=== PATIENT | female | born 1990 | race Caucasian/White ===

== ENCOUNTER 2021-02-20 18:13 | Emergency (ER) | payer OTHER ==
[~2021-02-20] VITALS: Ht 162.6 cm; Wt 68.0 kg
[2021-02-20 18:53] LABS: ABSOLUTE BASOPHILS 0.1 thou/uL (0.0-0.2); ABSOLUTE EOSINOPHILS 0.1 thou/uL (0.0-0.7); ABSOLUTE LYMPHOCYTES 2.4 thou/uL (0.8-5.3); ABSOLUTE MONOCYTES 0.5 thou/uL (0.0-1.2); ABSOLUTE NEUTROPHILS 8.2 thou/uL (1.6-8.1); BASOPHILS 1.2 %; EOSINOPHILS 0.5 %; HEMATOCRIT 42.9 % (37.0-47.0); HEMOGLOBIN 14.5 gm/dL (12.0-15.0); LYMPHOCYTES 21.3 %; MCH 30.8 pg (26.0-34.0); MCHC 33.8 g/dL (28.0-37.0); MCV 91.1 fL (80.0-100.0); MONOCYTES 4.1 %; MPV 8.1 fl. (7.2-11.1); NUCLEATED RBCS 0 /100WBC; PLATELET COUNT* 209 thou/uL (150-400); POLYS 72.9 %; RBC 4.71 mil/uL (4.20-5.00); WBC 11.3 thou/uL (4.0-11.0)
[2021-02-20 19:00] LABS: CALCIUM 9.2 mg/dL (8.5-10.1); POTASSIUM 3.6 mmol/L (3.5-5.1)
[2021-02-20 19:02] LABS: URINE BLOOD 3+ (Negative); URINE CLARITY CLOUDY; URINE COLOR BROWN; URINE GLUCOSE-RANDOM NEGATIVE (Negative); URINE KETONES TRACE (Negative); URINE LEUKOCYTES TRACE (Negative); URINE NITRITE POSITIVE (Negative); URINE PROTEIN 3+ (Negative); URINE SPECIFIC GRAVITY >= 1.030 (1.005-1.030)
[2021-02-20 19:05] LABS: ICTOTEST (BILI CONFIRMATORY) Negative (Negative); URINE BILIRUBIN 1+ (Negative)
[2021-02-20 19:05] LABS: ALBUMIN 4.5 g/dL (3.4-5.0); TOTAL BILIRUBIN 0.3 mg/dL (<0.1-1.0); TOTAL PROTEIN 7.5 g/dL (6.4-8.2)
[2021-02-20 19:07] LABS: CRYSTALS None Seen /LPF (None Seen); MUCUS None Seen strn/LPF (None Seen); SQUAMOUS >10 Many /LPF (0-3); URINE RBC >20 Many /HPF (0-2)
[2021-02-20 19:08] LABS: BACTERIA 1-9 Few /HPF (None Seen); YEAST Present (None Seen)
[2021-02-20 19:09] LABS: CASTS None Seen /LPF (None Seen); URINE WBC 0-5 Rare /HPF (0-5)
[2021-02-20] MEDS ORDERED: CEPHALEXIN500 MG PO (21:10)
[2021-02-20 21:18] VITALS: BP 132/72
== END 2021-02-20 21:20 | disposition home or self-care (01) ==
LOC: M.ERS 18:13
PROVIDERS: Physician Assistant
DX: N39.0 Urinary tract infection, site not specified (principal); R31.9 Hematuria, unspecified; R11.2 Nausea with vomiting, unspecified; N20.0 Calculus of kidney; Z98.51 Tubal ligation status; Z88.0 Allergy status to penicillin

== ENCOUNTER 2021-02-28 02:38 | Emergency (ER) | payer OTHER ==
[~2021-02-28] VITALS: Ht 162.6 cm; Wt 68.0 kg
[~2021-02-28 02:38] MED LIST: CEPHALEXIN500 MG PO
[2021-02-28 04:16] LABS: URINE BILIRUBIN NEGATIVE (Negative); URINE BLOOD 3+ (Negative); URINE CLARITY CLEAR; URINE COLOR YELLOW; URINE GLUCOSE-RANDOM NEGATIVE (Negative); URINE KETONES NEGATIVE (Negative); URINE LEUKOCYTES-REFLEX TRACE (Negative); URINE NITRITE-REFLEX NEGATIVE (Negative); URINE PROTEIN NEGATIVE (Negative); URINE SPECIFIC GRAVITY 1.015 (1.005-1.030); URINE UROBILINOGEN 0.2 E.U./dl (0.2-1.0)
[2021-02-28 04:53] LABS: CASTS None Seen /LPF (None Seen); SQUAMOUS >10 Many /LPF (0-3)
[2021-02-28 04:54] LABS: URINE RBC >20 Many /HPF (0-2); URINE WBC-REFLEX 6-15 Few /HPF (0-5)
[2021-02-28 04:56] LABS: BACTERIA-REFLEX 1-9 Few /HPF (None Seen); CRYSTALS None Seen /LPF (None Seen)
[2021-02-28] MEDS ORDERED: HYDROCODON-ACE1 EAC8 PO (05:14)
[2021-02-28] MEDS ORDERED: ZOFRAN ODT4 MG PO (05:14)
[2021-02-28 05:25] VITALS: BP 139/80
== END 2021-02-28 05:26 | disposition home or self-care (01) ==
LOC: M.ERS 02:38
PROVIDERS: Emergency Medicine
DX: N13.2 Hydronephrosis with renal and ureteral calculous obstruction (principal); Z87.442 Personal history of urinary calculi; Z98.51 Tubal ligation status; Z88.0 Allergy status to penicillin

== ENCOUNTER 2021-02-28 12:08 | Emergency (ER) | payer OTHER ==
[~2021-02-28] VITALS: Ht 162.6 cm; Wt 68.0 kg
[~2021-02-28 12:08] MED LIST changes: +HYDROCODON-ACE1 EAC8 PO; +ZOFRAN ODT4 MG PO
[2021-02-28 12:19] VITALS: BP 136/76
== END 2021-02-28 12:32 | disposition left against medical advice (07) ==
LOC: M.ERS 12:08
DX: R10.9 Unspecified abdominal pain (principal); Z53.21 Procedure and treatment not carried out due to patient leaving prior to being seen by health care provider

== ENCOUNTER 2021-02-28 22:33 | Observation (INO) | payer OTHER ==
[~2021-02-28] VITALS: Ht 162.6 cm; Wt 74.3 kg
--- NOTE | ~2021-02-28 | OP ---
[address] [address] OPERATIVE REPORT Name: PEPITO BERG Lili Room: [address] Douglas Bosch#: [id number] Admission: 03/01/21 Attend Phys: Lili Linares Discharge: Date of : 86 Report #: [id number] THIS REPORT FOR: cc: FAM - No family physician/PCP FAM - No family physician/PCP Giovanni Yang MD ~ DATE OF SURGERY: 03/02/2021 PREOPERATIVE DIAGNOSIS: A 4 mm proximal right ureteral stone with hydronephrosis. POSTOPERATIVE DIAGNOSIS: A 4 mm proximal right ureteral stone with hydronephrosis. PROCEDURES: Cystoscopy, right retrograde pyelogram, right ureteroscopy with holmium laser lithotripsy, ureteroscopic stone extraction, placement of right ureteral stent. STAFF SURGEON: Giovanni Yang MD ANESTHESIA: General. ESTIMATED BLOOD LOSS: None. COMPLICATIONS: None. SPECIMENS: Right ureteral stone. DRAINS: Right ureteral stent 26 cm x ____ Guinean ureteral stent. INDICATIONS: The patient is a pleasant 30-year-old white female with no personal history of kidney stones, but the family has had kidney stones, presented with acute onset right flank pain. CT scan confirmed a 4 mm proximal right ureteral stone with hydronephrosis. She was counseled regarding treatment options, elected for definitive cystoscopy, right retrograde pyelogram, right ureteroscopy, possible holmium laser lithotripsy, possible placement of right ureteral stent. After the risks and benefits of the procedure were explained, informed consent was obtained. DESCRIPTION OF PROCEDURE: The patient was taken to the operating room, comfortably placed in the dorsal lithotomy position under adequate general anesthesia. The patient was sterilely prepped and draped in standard fashion exposing only the genitalia. She received her Ancef antibiotic therapy as prescribed. Appropriate timeout was carried out and all were in agreement. A 22-Guinean cystoscope with the obturator in place was blindly inserted into the urethra, the obturator was removed, draining clear [place] [address] OPERATIVE REPORT Name: PEPITO BERG [address]: [address]#: [id number] Admission: 03/01/21 Attend Phys: Lili Linares Discharge: Date of : 86 Report #: [id number] was systematically viewed. Both ureteral orifices identified normal. No bladder calculi seen or foreign body observed. Mucosa was smooth. A 5-Guinean open-ended ureteral catheter placed in the right ureteral orifice and retrograde pyelogram performed showing a normal caliber ureter all the way up to the ureteropelvic junction where a filling defect could be identified. An 0.035 Glidewire was advanced up the right ureter to the level of kidney. The cystoscope was removed. A 4.5-Guinean tapered to a 6.5-Guinean White semi-rigid ureteroscope advanced through the urethra up to the right ureter to the level of the stone, kind of edematous at that level. A 200 micron holmium laser fiber put in place, began to fragment the stone and began to migrate towards the renal pelvis, actually it fell into the renal pelvis, but was able to identify, ____ basket and gently brought it down the ureter until resistance was met at the level of the ureterovesical junction. At this level, a 200 micron holmium laser fiber set at 6.4 wilhelm began to fragment the stone within the basket. This broke it up enough to be able to remove the fragments gently through the transmural ureter without difficulty. There were three separate passes, removing all the fragments. Repeat ureteroscopy showed no damage to the ureter, no residual fragments remained. The ureteroscope was removed and over the guidewire, a 26 cm x 6 Guinean ureteral stent was put in place and positioned with good coil in right renal pelvis, good coil in the bladder. The bladder was drained, cystoscope was removed. She tolerated this extremely well. She was extubated in the operating room, transferred to [facility] with assistance and went to recovery in stable condition. We will see her back in our office in a week to have her stent removed and follow up in 6 weeks with a renal ultrasound and KUB. By: [id number] Vipul Yang MD /[email or web address]
[2021-02-28 22:40] VITALS: BP 137/76
[2021-02-28 23:03] LABS: ABSOLUTE EOSINOPHILS 0.1 thou/uL (0.0-0.7); ABSOLUTE LYMPHOCYTES 1.9 thou/uL (0.8-5.3); ABSOLUTE MONOCYTES 0.4 thou/uL (0.0-1.2); ABSOLUTE NEUTROPHILS 5.2 thou/uL (1.6-8.1); BASOPHILS 0.6 %; EOSINOPHILS 1.5 %; HEMATOCRIT 41.5 % (37.0-47.0); HEMOGLOBIN 14.1 gm/dL (12.0-15.0); LYMPHOCYTES 25.2 %; MCHC 34.1 g/dL (28.0-37.0); MCV 91.1 fL (80.0-100.0); MONOCYTES 5.5 %; MPV 8.2 fl. (7.2-11.1); NUCLEATED RBCS 0 /100WBC; PLATELET COUNT* 199 thou/uL (150-400); POLYS 67.2 %; RBC 4.56 mil/uL (4.20-5.00); RDW-CV 13.2 % (10.5-14.5); WBC 7.7 thou/uL (4.0-11.0)
[2021-02-28 23:05] LABS: URINE BILIRUBIN NEGATIVE (Negative); URINE BLOOD 3+ (Negative); URINE CLARITY CLEAR; URINE COLOR YELLOW; URINE GLUCOSE-RANDOM NEGATIVE (Negative); URINE KETONES NEGATIVE (Negative); URINE LEUKOCYTES-REFLEX NEGATIVE (Negative); URINE NITRITE-REFLEX NEGATIVE (Negative); URINE PROTEIN NEGATIVE (Negative); URINE UROBILINOGEN 0.2 E.U./dl (0.2-1.0)
[2021-02-28 23:09] LABS: CALCIUM 8.4 mg/dL (8.5-10.1); CREATININE 0.9 mg/dL (0.6-1.3); POTASSIUM 3.6 mmol/L (3.5-5.1)
[2021-02-28 23:13] LABS: ALBUMIN 3.7 g/dL (3.4-5.0); TOTAL BILIRUBIN 0.4 mg/dL (<0.1-1.0); TOTAL PROTEIN 6.9 g/dL (6.4-8.2)
[2021-02-28 23:18] LABS: SQUAMOUS 0-3 Few /LPF (0-3)
[2021-02-28 23:19] LABS: BACTERIA-REFLEX 1-9 Few /HPF (None Seen); CASTS None Seen /LPF (None Seen); CRYSTALS None Seen /LPF (None Seen); URINE RBC >20 Many /HPF (0-2); URINE WBC-REFLEX 0-5 Rare /HPF (0-5)
[2021-03-01 01:53] VITALS: BP 122/64
[2021-03-01 02:01] VITALS: BP 122/62
[2021-03-01 08:00] VITALS: BP 109/71
[2021-03-01 16:00] VITALS: BP 113/62
[2021-03-01 21:57] VITALS: BP 122/57
[2021-03-02 04:10] LABS: MCH 31.2 pg (26.0-34.0); MCHC 34.1 g/dL (28.0-37.0); MCV 91.4 fL (80.0-100.0); RBC 3.83 mil/uL (4.20-5.00); RDW-CV 13.2 % (10.5-14.5); WBC 5.1 thou/uL (4.0-11.0)
[2021-03-02 04:25] LABS: CALCIUM 7.9 mg/dL (8.5-10.1); CREATININE 0.9 mg/dL (0.6-1.3)
[2021-03-02 04:36] LABS: HEMOGLOBIN 11.9 gm/dL (12.0-15.0)
[2021-03-02 09:23] VITALS: BP 125/64
[2021-03-02] MEDS ORDERED: HYDROCODON-ACE1 EAC8 PO (10:33)
[2021-03-02 16:07] VITALS: BP 114/65
[2021-03-02 18:58] VITALS: BP 114/65
[2021-03-02 20:11] VITALS: BP 125/76
[2021-03-03] VITALS: BP 136/70
[2021-03-03 04:00] VITALS: BP 119/74
[2021-03-03 08:00] VITALS: BP 127/77
[2021-03-03 10:44] VITALS: BP 114/65
== END 2021-03-03 11:10 | disposition home or self-care (01) ==
LOC: M.ERS 22:33 → M.TBA-ER 03-01 00:28 → M.3W 03-01 02:00
PROVIDERS: Emergency Medicine; Family Medicine; ADMIT Internal Medicine; ATTEND Internal Medicine
DX: N13.2 Hydronephrosis with renal and ureteral calculous obstruction (principal); N39.0 Urinary tract infection, site not specified; R11.2 Nausea with vomiting, unspecified; Z20.822 Contact with and (suspected) exposure to COVID-19; F17.200 Nicotine dependence, unspecified, uncomplicated; Z23 Encounter for immunization; Z79.899 Other long term (current) drug therapy